=== PATIENT | male | born 1975 | race Caucasian/White ===

== ENCOUNTER 2017-10-22 18:15 | Emergency (ER) | payer BC ==
--- NOTE | 2017-10-22 19:11 | EDM.PDOC ---
ED HPI GENERAL MEDICAL PROBLEM - General Chief Complaint: General Stated Complaint: right sided weakness/numbing Time Seen by Provider: 10/22/17 18:30 Source of Information: Reports: Patient History Limitations: Reports: No Limitations - History of Present Illness INITIAL COMMENTS - FREE TEXT/NARRATIVE: According to patient, he calims that he started to feel some tinging and spasms in his right face around 9 Am today. when he was eating he could feels water drool from the left side of the mouth later in the afternoon, and when he looked at hsi face in the miror in the evening today, he noticed some asyymentry and hence came into the emergency room. No weakness in the extremities. No blurry vision, no naausea or vomting. No headache. No chest pain. Onset: Today Onset Date: 10/22/17 Onset Time: 09:00 - Related Data Allergies Allergy/AdvReac Type Severity Reaction Status Date / Time No Known Allergies Allergy Verified 10/22/17 18:54 Home Meds: Home Meds Aspirin [Halfprin] 1 tab PO DAILY 10/22/17 [History] Fish Oil/[place]-3 Fatty Acids [Fish Oil] 1 each PO DAILY 10/22/17 [History] Venlafaxine [Effexor] 25 mg PO DAILY 10/22/17 [History] Vit D3/Vit E Ac/Safflower Oil [Vitamin E Oil-Vitamin D] 1 tab PO DAILY 10/22/17 [History] atorvaSTATin [Lipitor] 40 mg PO BEDTIME 10/22/17 [History] ED ROS GENERAL - Review of Systems Review Of Systems: See Below Constitutional: Denies: Fever, Chills, Malaise, Weakness HEENT: Denies: Rhinitis, Throat Pain, Throat Swelling Respiratory: Denies: Shortness of Breath, Wheezing, Cough, Sputum Cardiovascular: Denies: Chest Pain, Lightheadedness Endocrine: Denies: Fatigue, High Glucose GI/Abdominal: Denies: Abdominal Pain, Nausea, Vomiting : Denies: Dysuria, Flank Pain, Frequency Musculoskeletal: Denies: Joint Pain, Joint Swelling Skin: Denies: Pruritis, Rash Neurological: Reports: Paresthesia, Weakness. Denies: Confusion, Dizziness, Headache, Numbness, Pre-Existing Deficit, Tingling, Tremors, Trouble Speaking, Difficulty Walking, Change in Speech, Gait Disturbance ED EXAM, GENERAL - Physical Exam Exam: See Below Exam Limited By: No Limitations General Appearance: Alert, WD/WN, No Apparent Distress Eye Exam: Bilateral Eye: EOMI, PERRL Ears: Normal External Exam, Normal Canal, Hearing Grossly Normal, Normal TMs Ear Exam: Bilateral Ear: Auricle Normal, Canal Normal, TM normal Nose: Normal Inspection, Normal Mucosa, No Blood Throat/Mouth: Normal Inspection, Normal Lips, Normal Teeth, Normal Gums, Normal Oropharynx, Normal Voice, No Airway Compromise Head: Atraumatic, Normocephalic Neck: Normal Inspection, Supple, Non-Tender, Full Range of Motion Respiratory/Chest: No Respiratory Distress, Lungs Clear, Normal Breath Sounds, No Accessory Muscle Use, Chest Non-Tender Cardiovascular: Normal Peripheral Pulses, Regular Rate, Rhythm, No Edema, No Gallop, No JVD, No Murmur, No Rub GI/Abdominal: Normal Bowel Sounds, Soft, Non-Tender, No Organomegaly, No Distention, No Abnormal Bruit, No Mass Neurological: Alert, Oriented, Normal Cognition, Normal Gait, Normal Reflexes, No Motor/Sensory Deficits, Sensory/Motor Deficit (Pt does have right sided facial palsy. ). No: Confused, Disoriented Psychiatric: Normal Affect, Anxious Course - Vital Signs Text/Narrative:: CT head appears normal. He has right sided facial palsy. He does not have any other symptoms and his rest of the neurological exam appears normal. I have reassured katina that he has developed right facial palsy or Barth's palsy. Most common cause is pox or shingles virus. hence I have started him on Valtrex 1gm TID for 1 wk And quick tapering course of prednisone. Advised facial exercise 3-4 times daily. the facial palsy should gradually improve over the next 2-3 wks. Advised to followup in clinic in 1-2 wks or if symptoms worsen. - Orders/Labs/Meds Orders: Active Orders 24 hr Category Date Time Status Head wo Cont [CT] Stat Exams 10/22/17 19:03 Taken Departure - Departure Time of Disposition: 19:45 Disposition: Home, Self-Care 01 Condition: Good Clinical Impression: Right-sided Barth's palsy - Discharge Information Instructions: Barth Palsy Forms: ED Department Discharge Additional Instructions: CT head appears normal. He has right sided facial palsy. He does not have any other symptoms and his rest of the neurological exam appears normal. I have reassured katina that he has developed right facial palsy or Barth's palsy. Most common cause is pox or shingles virus. hence I have started him on Valtrex 1gm TID for 1 wk And quick tapering course of prednisone. Advised facial exercise 3-4 times daily. the facial palsy should gradually improve over the next 2-3 wks. Advised to followup in clinic in 1-2 wks or if symptoms worsen. - Problem List & Annotations (1) Right-sided Barth's palsy SNOMED Code(s): 532295979 Code(s): G51.0 - BARTH'S PALSY Status: Acute Current Visit: Yes - Problem List Review Problem List Initiated/Reviewed/Updated: Yes - My Orders Last 24 Hours: My Active Orders 10/22/17 19:03 Head wo Cont [CT] Stat - Assessment/Plan Last 24 Hours: My Active Orders 10/22/17 19:03 Head wo Cont [CT] Stat Assessment:: Right sided Barth's palsy Plan: CT head appears normal. He has right sided facial palsy. He does not have any other symptoms and his rest of the neurological exam appears normal. I have reassured katina that he has developed right facial palsy or Barth's palsy. Most common cause is pox or shingles virus. hence I have started him on Valtrex 1gm TID for 1 wk And quick tapering course of prednisone. Advised facial exercise 3-4 times daily. the facial palsy should gradually improve over the next 2-3 wks. Advised to followup in clinic in 1-2 wks or if symptoms worsen.
[2017-10-22] MEDS ORDERED: valACYclovir 500 MG Tab ONE (19:15)
[2017-10-22] MEDS ORDERED: predniSONE 10 MG Tab ONE (19:15)
--- NOTE | 2017-10-23 19:46 | CT ---
DATE OF SERVICE: 10/22/2017 CLINICAL DATA: Facial palsy. UNENHANCED BRAIN CT: Multislice acquisition through the brain without IV contrast was performed. No priors. No masses or mass effect. No intracranial hemorrhage. No evidence of acute or subacute infarct. 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 No osseous abnormalities. IMPRESSION: No acute intracranial abnormalities. [id number] [facility]
== END 2017-10-22 19:40 | disposition home or self-care (01) ==
LOC: LB.ED 18:15
DX: G51.0 Bell's palsy (principal); Z79.82 Long term (current) use of aspirin; Z79.899 Other long term (current) drug therapy
CPT/HCPCS: 70450; 99283-25; A9270-GY